=== PATIENT | male | born 1965 | race African-American/Black ===

== ENCOUNTER 2017-08-16 18:10 | Emergency (ER) | payer SELFPAY ==
[2017-08-16] MEDS ORDERED: Acetaminophen 500 MG TAB ONE (18:32)
== END 2017-08-16 18:42 | disposition home or self-care (01) ==
LOC: NAV ERS 18:10
DX: S09.21XA Traumatic rupture of right ear drum, initial encounter (principal); I10 Essential (primary) hypertension; H60.91 Unspecified otitis externa, right ear; F32.9 Major depressive disorder, single episode, unspecified; F17.210 Nicotine dependence, cigarettes, uncomplicated; X58.XXXA Exposure to other specified factors, initial encounter
CPT/HCPCS: 99282

== ENCOUNTER 2018-08-17 10:07 | Emergency (ER) | payer SELFPAY | END 2018-08-17 10:40 | disposition home or self-care (01) | LOC: NAV ERS 10:07 | DX: R60.0 Localized edema (principal); E11.9 Type 2 diabetes mellitus without complications; I10 Essential (primary) hypertension; F17.210 Nicotine dependence, cigarettes, uncomplicated; Z79.899 Other long term (current) drug therapy; Z79.84 Long term (current) use of oral hypoglycemic drugs | CPT/HCPCS: 99406 ==

== ENCOUNTER 2019-01-27 07:31 | Emergency (ER) | payer SELFPAY ==
[2019-01-27] MEDS ORDERED: Acetaminophen 325 MG TAB ONE (07:54)
[2019-01-27] MEDS ORDERED: Pantoprazole 40 MG VIAL ONE (07:54)
[2019-01-27 08:24] LABS: #Basophils 0.1 thou/uL (0.0-0.2); #Eosinphils 0.1 thou/uL (0.0-0.7); #Lymphocytes 1.8 thou/uL (1.20-3.40); #Monocytes 0.7 thou/uL (0.11-0.59); #Neutrophils 4.7 thou/uL (1.40-6.50); %Basophils 1.6 % (0.0-1.0); %Eosinophils 1.3 % (0.0-10.0); %Lymphocytes 24.7 % (21.0-51.0); %Monocytes 9.4 % (0.0-10.0)
[2019-01-27 08:25] LABS: Hemoglobin 14.5 g/dL (14.0-18.0); Mean Corpuscular HGB CONC 33.2 g/dL (32.0-36.0); Mean Corpuscular Volume 99.5 fL (78.0-98.0); Mean Platelet Volume 13.1 fL (7.4-10.4); Platelet Count 176 thou/uL (130-400); RBC Distribution Width 12.7 % (11.5-14.5); Red Blood Cell (RBC) Count 4.38 mill/uL (4.70-6.10); White Blood Cell (WBC) Count 7.4 thou/uL (4.8-10.8)
[2019-01-27 08:36] LABS: ALT (SGPT) 25 U/L (8-55); AST (SGOT) 20 U/L (5-34); Albumin 4.2 g/dL (3.5-5.0); Alkaline Phosphatase 73 U/L (40-150); Anion Gap 16 mmol/L (10-20); BUN (Urea Nitrogen) 10 mg/dL (8.4-25.7); Bilirubin, Total 1.2 mg/dL (0.2-1.2); Calc. Creatinine Clearance 0 mL/min (70-130); Calcium 9.8 mg/dL (7.8-10.44); Carbon Dioxide 25 mmol/L (22-29); Chloride 101 mmol/L (98-107); Estimated GFR-MDRD 63; Globulin 2.8 g/dL (2.4-3.5); Glucose 125 mg/dL (70-105); Potassium 4.2 mmol/L (3.5-5.1); Sodium 138 mmol/L (136-145)
[2019-01-27] MEDS ORDERED: Sodium Chloride 0.9% 500 ML ONE (08:39)
--- NOTE | 2019-01-27 09:03 | CT ---
CT OF THE BRAIN WITHOUT CONTRAST: Date: 01/27/19 INDICATION: Migraine headaches. COMPARISON: None. FINDINGS: There is mild mucosal thickening of the ethmoid air cells. There is an air fluid level within the lef t maxillary sinus. Mastoid air cells are clear. No acute infarct, hemorrhage, or hydrocephalus is pre sent. Septum pellucidum and third ventricle are midline. IMPRESSION: 1. Air fluid level left maxillary sinus. Recommend correlation for acute sinusitis. 2. No acute intracranial abnormality. POS: [facility]
--- NOTE | 2019-01-27 09:04 | RAD ---
PA AND LATERAL CHEST: HISTORY: History of acid reflux and chest pain. FINDINGS: The lungs are clear. Heart size is normal. There is spondylosis of the thoracic spine. IMPRESSION: No acute osseous abnormality. No appreciable change from the comparison, dated 07/19/2018. POS: [facility]
--- NOTE | 2019-01-27 09:07 | RAD ---
LEFT ANKLE 3 VIEWS: Date: 01/27/19 HISTORY: Left foot and ankle pain. COMPARISON: None. FINDINGS: No evidence for acute fracture or dislocation. Mild degenerative changes. IMPRESSION: Degenerative change without fracture or dislocation. POS: [facility]
[2019-01-27] MEDS ORDERED: Sodium Chloride 0.9% 1,000 ML ONE (09:16)
[2019-01-27] MEDS ORDERED: Morphine 4 MG/ML VIAL ONE (09:16)
[2019-01-27] MEDS ORDERED: Ondansetron PF 4 MG/2 ML Vial ONE (09:27)
[2019-01-27 10:22] LABS: Bilirubin Negative (Negative); Blood, Urine Negative (Negative); Clarity Clear (Clear); Glucose, Urine (Dipstick) Negative (Negative); Leukocyte Negative (Negative); Nitrite Negative (Negative); Protein, Urine (Dipstick) Negative (Neg-Trace); Urobilinogen 0.2 mg/dL (0.2-1.0)
[2019-01-27 10:23] LABS: Specific Gravity, Urine 1.004 (1.002-1.036)
[2019-01-27 10:36] LABS: Amphetamine Not Detected (NotDetected); Barbiturates Screen Not Detected (NotDetected); Benzodiazepine Screen Not Detected (NotDetected); Cocaine Metabolite Screen Detected (NotDetected); Medtox Control Line Valid? VALID (VALID); Methadone Not Detected (NotDetected); Methamphetamine Not Detected (NotDetected); Opiate Screen Detected (NotDetected); Oxycodone Screen Not Detected (NotDetected); Phencyclidine (PCP) Not Detected (NotDetected); THC/Cannabinoid Screen Not Detected (NotDetected); Tricyclic Screen Not Detected (NotDetected)
== END 2019-01-27 10:30 | disposition short-term general hospital (02) ==
LOC: NAV ERS 07:31
DX: S93.402A Sprain of unspecified ligament of left ankle, initial encounter (principal); R07.2 Precordial pain; J32.0 Chronic maxillary sinusitis; I16.0 Hypertensive urgency; E11.9 Type 2 diabetes mellitus without complications; I10 Essential (primary) hypertension; F17.210 Nicotine dependence, cigarettes, uncomplicated; F32.9 Major depressive disorder, single episode, unspecified; Z79.899 Other long term (current) drug therapy; Z79.84 Long term (current) use of oral hypoglycemic drugs; X58.XXXA Exposure to other specified factors, initial encounter
CPT/HCPCS: 70450; 71046; 80053; 80306; 81003; 84484; 85025; 93005; 94760; 96361; 96374; 96375; C9113; J2270; J2405; J7050

== ENCOUNTER 2019-11-23 08:11 | Emergency (ER) | payer SELFPAY | END 2019-11-23 09:00 | disposition home or self-care (01) | LOC: NAV ERS 08:11 | DX: I10 Essential (primary) hypertension (principal); E11.9 Type 2 diabetes mellitus without complications; Z79.899 Other long term (current) drug therapy | CPT/HCPCS: 99283 ==

== ENCOUNTER 2019-11-28 07:20 | Emergency (ER) | payer SELFPAY ==
--- NOTE | 2019-11-28 08:15 | RAD ---
2 view chest: CLINICAL HISTORY: Cough COMPARISON: 01/27/2019 FINDINGS: There is no focal consolidation, effusion, or pneumothorax. Cardiac silhouette is normal in size. No acute osseous abnormality. IMPRESSION: No focal consolidation.
[2019-11-28] MEDS ORDERED: Oseltamivir 75 MG CAP ONE (08:25)
[2019-11-28] MEDS ORDERED: Ondansetron ODT 4 MG TAB ONE (08:25)
== END 2019-11-28 08:33 | disposition home or self-care (01) ==
LOC: NAV ERS 07:20
DX: B34.9 Viral infection, unspecified (principal); R11.2 Nausea with vomiting, unspecified; E11.9 Type 2 diabetes mellitus without complications; I10 Essential (primary) hypertension; F17.210 Nicotine dependence, cigarettes, uncomplicated; Z79.84 Long term (current) use of oral hypoglycemic drugs; Z79.899 Other long term (current) drug therapy
CPT/HCPCS: 71046; 87804; Q0162

== ENCOUNTER 2019-12-23 09:13 | Emergency (ER) | payer SELFPAY ==
[2019-12-23] MEDS ORDERED: Naproxen 500 MG TAB ONE (10:00)
[2019-12-23 10:23] LABS: Hemoglobin 14.5 g/dL (14.0-18.0); Mean Corpuscular Hemoglobin 32.9 pg (27.0-31.0); Mean Corpuscular Volume 99.6 fL (78.0-98.0); Mean Platelet Volume 11.1 fL (7.4-10.4); Platelet Count 140 thou/uL (130-400); RBC Distribution Width 12.5 % (11.5-14.5); Red Blood Cell (RBC) Count 4.41 mill/uL (4.70-6.10); White Blood Cell (WBC) Count 4.2 thou/uL (4.8-10.8)
[2019-12-23 10:25] LABS: ALT (SGPT) 24 U/L (8-55); AST (SGOT) 19 U/L (5-34); Albumin 3.7 g/dL (3.5-5.0); Alkaline Phosphatase 57 U/L (40-110); Anion Gap 14 mmol/L (10-20); BUN (Urea Nitrogen) 18 mg/dL (8.4-25.7); Bilirubin, Total 0.7 mg/dL (0.2-1.2); CK (CPK) 186 U/L (30-200); Calc. Creatinine Clearance 0 mL/min (70-130); Carbon Dioxide 25 mmol/L (22-29); Chloride 103 mmol/L (98-107); Estimated GFR-MDRD 75; Globulin 2.5 g/dL (2.4-3.5); Glucose 114 mg/dL (70-105); Protein, Total 6.2 g/dL (6.0-8.3); Sodium 138 mmol/L (136-145)
--- NOTE | 2019-12-23 10:30 | RAD ---
EXAM: 2 views of the right hip HISTORY: Right hip pain COMPARISON: 07/05/2014 FINDINGS: 2 views of the right hip shows no evidence of acute fracture or dislocation. Moderate degen erative changes are seen. No soft tissue swelling is present. IMPRESSION: Moderate right hip osteoarthritis without acute osseous abnormality.
[2019-12-23 10:44] LABS: Eosinophils 4 % (0-10); Lymphocytes 35 % (21-51); MDiff Complete? YES; Monocytes 4 % (0-10); Neutrophil 57 % (42-75); Platelet Morphology Comment Appears Adequate; RBC Morphology Normal
--- NOTE | 2019-12-23 10:46 | CT ---
CT LUMBAR SPINE: Axial tomograms were obtained with multiplanar reconstructions. INDICATION: Lumbar pain. FINDINGS: The lumbar vertebrae maintain normal height and alignment. Disk spaces are preserved. Mild to moder ate degenerative changes are noted with anterior and lateral osteophytes from the lumbar vertebrae. At L1-2, no significant disk bulge. No central canal or foraminal stenosis. At L2-3, minimal disk bulge. Mild facet hypertrophy. No significant central canal or foraminal sten osis. At L3-4, mild disk bulge flattens the thecal sac. Facet and ligamentous hypertrophy is more pronounc ed. These changes result in mild central canal stenosis. At L4-5, mild diffuse disk bulge. Facet and ligamentous hypertrophy is more pronounced. These morales es result in moderately severe central canal stenosis. Bilateral foraminal stenosis is present due t o diffuse disk bulge and facet hypertrophy. At L5-S1, mild diffuse disk bulge. Cognitively smaller thecal sac. No significant central canal carrie nosis, although there is moderately severe facet hypertrophy. Bilateral foraminal encroachment due t o broad-based disk bulge and facet hypertrophy. IMPRESSION: Moderate to severe central canal stenosis at L4-5. Findings at the other disk levels are described a derrell. POS: [facility]
== END 2019-12-23 11:12 | disposition home or self-care (01) ==
LOC: NAV ERS 09:13
DX: M16.11 Unilateral primary osteoarthritis, right hip (principal); M51.36 Other intervertebral disc degeneration, lumbar region; E11.9 Type 2 diabetes mellitus without complications; I10 Essential (primary) hypertension; F17.210 Nicotine dependence, cigarettes, uncomplicated; Z79.84 Long term (current) use of oral hypoglycemic drugs; Z79.899 Other long term (current) drug therapy
CPT/HCPCS: 36415; 72131; 80053; 82550; 85025

== ENCOUNTER 2020-01-13 06:39 | Emergency (ER) | payer SELFPAY ==
[2020-01-13] MEDS ORDERED: Metoclopramide HCl 10 MG/2 ML VIAL ONE (07:15)
[2020-01-13] MEDS ORDERED: diphenhydrAMINE 50 MG/ML VIAL ONE (07:15)
[2020-01-13] MEDS ORDERED: Ketorolac Tromethamine 30 MG/ML VIAL ONE (07:15)
== END 2020-01-13 08:10 | disposition home or self-care (01) ==
LOC: NAV ERS 06:39
DX: R51 Headache (principal); M25.511 Pain in right shoulder; E11.9 Type 2 diabetes mellitus without complications; I10 Essential (primary) hypertension; F17.210 Nicotine dependence, cigarettes, uncomplicated; Z79.84 Long term (current) use of oral hypoglycemic drugs; Z79.899 Other long term (current) drug therapy
CPT/HCPCS: 96372; 99283; J1200; J1885; J2765

== ENCOUNTER 2020-10-08 20:35 | Emergency (ER) | payer BC, SELFPAY ==
[2020-10-08] MEDS ORDERED: Cyclobenzaprine 10 MG TAB ONE (21:13)
[2020-10-08] MEDS ORDERED: Ketorolac Tromethamine 60 MG/2 ML VIAL ONE (21:13)
== END 2020-10-08 21:36 | disposition home or self-care (01) ==
LOC: NAV ERS 20:35
DX: S39.012A Strain of muscle, fascia and tendon of lower back, initial encounter (principal); G44.209 Tension-type headache, unspecified, not intractable; E11.9 Type 2 diabetes mellitus without complications; I10 Essential (primary) hypertension; F17.210 Nicotine dependence, cigarettes, uncomplicated; Z79.4 Long term (current) use of insulin; Z79.899 Other long term (current) drug therapy; X50.0XXA Overexertion from strenuous movement or load, initial encounter
CPT/HCPCS: 96372; 99406; J1885

== ENCOUNTER 2021-06-22 12:34 | Emergency (ER) | payer SELFPAY ==
[2021-06-22] MEDS ORDERED: Orphenadrine Citrate 60 MG/2 ML VIAL ONE (13:56)
== END 2021-06-22 14:12 | disposition home or self-care (01) ==
LOC: NAV ERS 12:34
DX: J06.9 Acute upper respiratory infection, unspecified (principal); M62.830 Muscle spasm of back; G89.29 Other chronic pain; E11.9 Type 2 diabetes mellitus without complications; I10 Essential (primary) hypertension; F17.210 Nicotine dependence, cigarettes, uncomplicated; Z79.4 Long term (current) use of insulin; Z79.899 Other long term (current) drug therapy
CPT/HCPCS: 96372; 99283; J2360

== ENCOUNTER 2022-02-23 03:23 | Emergency (ER) | payer BC, OTHER ==
[2022-02-23] MEDS ORDERED: Morphine 4 MG/ML VIAL ONE (04:34)
[2022-02-23 16:09] LABS: SARS-CoV-2 PCR by NAA Not Detected (NotDetected)
== END 2022-02-23 05:07 | disposition home or self-care (01) ==
LOC: NAV ERS 03:23
DX: R05.9 Cough, unspecified (principal); R50.9 Fever, unspecified; E11.9 Type 2 diabetes mellitus without complications; I10 Essential (primary) hypertension; F17.210 Nicotine dependence, cigarettes, uncomplicated; Z20.822 Contact with and (suspected) exposure to COVID-19; Z79.4 Long term (current) use of insulin; Z79.84 Long term (current) use of oral hypoglycemic drugs; Z79.899 Other long term (current) drug therapy
CPT/HCPCS: 71046; 87804; 94640; 96372; J2270; J7620; U0003; U0005

== ENCOUNTER 2022-05-06 23:38 | Emergency (ER) | payer SELFPAY ==
[2022-05-07 00:04] LABS: Bilirubin Negative (Negative); Blood, Urine Negative (Negative); Clarity Clear (Clear); Glucose, Urine (Dipstick) Negative (Negative); Ketone, Urine Negative (Negative); Leukocyte Negative (Negative); Nitrite Negative (Negative); Protein, Urine (Dipstick) Negative (Neg-Trace); Urobilinogen 0.2 mg/dL (Less than 2)
[2022-05-07] MEDS ORDERED: Ketorolac Tromethamine 60 MG/2 ML VIAL ONE (00:04)
[2022-05-07] MEDS ORDERED: Ondansetron ODT 4 MG TAB ONE (00:04)
[2022-05-07] MEDS ORDERED: traMADol HCl 50 MG TAB ONE (00:04)
== END 2022-05-07 00:27 | disposition home or self-care (01) ==
LOC: NAV ERS 23:38
DX: M10.9 Gout, unspecified (principal); A08.4 Viral intestinal infection, unspecified; E11.9 Type 2 diabetes mellitus without complications; I10 Essential (primary) hypertension; R11.2 Nausea with vomiting, unspecified; G47.30 Sleep apnea, unspecified; F17.210 Nicotine dependence, cigarettes, uncomplicated; Z79.899 Other long term (current) drug therapy; Z79.4 Long term (current) use of insulin; Z79.82 Long term (current) use of aspirin
CPT/HCPCS: 81003; 96372; 99284; J1885; Q0162

== ENCOUNTER 2022-06-11 08:47 | Emergency (ER) | payer SELFPAY ==
[2022-06-11] MEDS ORDERED: Ketorolac Tromethamine 30 MG/ML VIAL ONE (09:29)
== END 2022-06-11 09:56 | disposition home or self-care (01) ==
LOC: NAV ERS 08:47
DX: U07.1 COVID-19 (principal); E11.9 Type 2 diabetes mellitus without complications; M54.50 Low back pain, unspecified; M10.9 Gout, unspecified; G47.30 Sleep apnea, unspecified; F17.210 Nicotine dependence, cigarettes, uncomplicated; Z79.82 Long term (current) use of aspirin; Z79.4 Long term (current) use of insulin; Z79.899 Other long term (current) drug therapy
CPT/HCPCS: 71045; 96372; J1885

== ENCOUNTER 2022-06-22 09:03 | Emergency (ER) | payer SELFPAY | END 2022-06-22 09:33 | disposition home or self-care (01) | LOC: NAV ERS 09:03 | DX: J04.0 Acute laryngitis (principal); E11.9 Type 2 diabetes mellitus without complications; I10 Essential (primary) hypertension; F17.210 Nicotine dependence, cigarettes, uncomplicated; Z79.899 Other long term (current) drug therapy; Z79.4 Long term (current) use of insulin; Z79.84 Long term (current) use of oral hypoglycemic drugs | CPT/HCPCS: 99282 ==

== ENCOUNTER 2022-07-10 04:42 | Emergency (ER) | payer SELFPAY ==
[2022-07-10 05:30] LABS: Bilirubin Negative (Negative); Blood, Urine Negative (Negative); Clarity Clear (Clear); Glucose, Urine (Dipstick) Negative (Negative); Ketone, Urine Negative (Negative); Leukocyte Negative (Negative); Nitrite Negative (Negative); Protein, Urine (Dipstick) Negative (Neg-Trace); Specific Gravity, Urine 1.025 (1.005-1.030)
[2022-07-10] MEDS ORDERED: Aspirin Chewable 81 MG TAB ONE (05:36)
[2022-07-10 05:46] LABS: Mean Platelet Volume 12.2 fL (7.4-10.4)
[2022-07-10 05:49] LABS: ALT (SGPT) 25 U/L (8-55); AST (SGOT) 19 U/L (5-34); Albumin 3.4 g/dL (3.5-5.0); Alkaline Phosphatase 49 U/L (40-110); Anion Gap 13 mmol/L (10-20); BUN (Urea Nitrogen) 16 mg/dL (8.4-25.7); Bilirubin, Total 0.8 mg/dL (0.2-1.2); Calc. Creatinine Clearance 0 mL/min (70-130); Calcium 8.5 mg/dL (7.8-10.44); Carbon Dioxide 22 mmol/L (22-29); Chloride 105 mmol/L (98-107); Estimated GFR 75; Globulin 2.3 g/dL (2.4-3.5); Glucose 156 mg/dL (70-105); Hemoglobin 10.6 g/dL (14.0-18.0); Lipase 23 U/L (8-78); Mean Corpuscular HGB CONC 27.7 g/dL (32.0-36.0); Mean Corpuscular Hemoglobin 25.1 pg (27.0-31.0); Mean Corpuscular Volume 90.6 fL (78.0-98.0); Platelet Count 209 thou/uL (130-400); Potassium 3.9 mmol/L (3.5-5.1); Protein, Total 5.7 g/dL (6.0-8.3); Red Blood Cell (RBC) Count 4.21 mill/uL (4.70-6.10); Sodium 136 mmol/L (136-145); White Blood Cell (WBC) Count 4.5 thou/uL (4.8-10.8)
[2022-07-10 05:50] LABS: #Basophils 0.1 thou/uL (0.0-0.2); #Lymphocytes 0.6 thou/uL (1.20-3.40); #Monocytes 0.5 thou/uL (0.11-0.59); #Neutrophils 3.4 thou/uL (1.40-6.50); %Basophils 1.4 % (0.0-1.0); %Eosinophils 0.6 % (0.0-10.0); %Lymphocytes 12.7 % (21.0-51.0); %Monocytes 10.1 % (0.0-10.0); %Neutrophils 75.2 % (42.0-75.0)
== END 2022-07-10 08:41 | disposition left against medical advice (07) ==
LOC: NAV ERS 04:42
DX: R06.02 Shortness of breath (principal); M79.18 Myalgia, other site; D64.9 Anemia, unspecified; R30.0 Dysuria; I45.10 Unspecified right bundle-branch block; I10 Essential (primary) hypertension; E11.9 Type 2 diabetes mellitus without complications; M10.9 Gout, unspecified; G47.30 Sleep apnea, unspecified; F17.210 Nicotine dependence, cigarettes, uncomplicated; Z79.82 Long term (current) use of aspirin; Z79.4 Long term (current) use of insulin; Z79.899 Other long term (current) drug therapy
CPT/HCPCS: 36415; 71046; 80053; 81003; 83690; 83880; 84484; 85025; 85379; 93005

== ENCOUNTER 2022-08-21 10:02 | Emergency (ER) | payer OTHER ==
[2022-08-21] MEDS ORDERED: Sodium Chloride 0.9% 1,000 ML ONE (10:20)
== END 2022-08-21 10:45 | disposition home or self-care (01) ==
LOC: NAV ERS 10:02
DX: J06.9 Acute upper respiratory infection, unspecified (principal); E11.9 Type 2 diabetes mellitus without complications; I10 Essential (primary) hypertension; F17.210 Nicotine dependence, cigarettes, uncomplicated; Z79.4 Long term (current) use of insulin; Z79.899 Other long term (current) drug therapy
CPT/HCPCS: 36416; 99284; J7050

== ENCOUNTER 2022-10-12 05:19 | Emergency (ER) | payer OTHER ==
[2022-10-12 06:02] LABS: Bilirubin Negative (Negative); Blood, Urine Negative (Negative); Clarity Clear (Clear); Glucose, Urine (Dipstick) Negative (Negative); Ketone, Urine Negative (Negative); Leukocyte Negative (Negative); Nitrite Negative (Negative); Protein, Urine (Dipstick) Negative (Neg-Trace); Urobilinogen 0.2 mg/dL (Less than 2)
[2022-10-12] MEDS ORDERED: Cyclobenzaprine 10 MG TAB ONE (06:14)
[2022-10-12] MEDS ORDERED: Ketorolac Tromethamine 60 MG/2 ML VIAL ONE (06:14)
== END 2022-10-12 06:40 | disposition home or self-care (01) ==
LOC: NAV ERS 05:19
DX: S39.012A Strain of muscle, fascia and tendon of lower back, initial encounter (principal); E11.9 Type 2 diabetes mellitus without complications; I10 Essential (primary) hypertension; F17.210 Nicotine dependence, cigarettes, uncomplicated; Z79.84 Long term (current) use of oral hypoglycemic drugs; Z79.899 Other long term (current) drug therapy; Z79.4 Long term (current) use of insulin
CPT/HCPCS: 81003; 96372; 99283; J1885

== ENCOUNTER 2022-10-21 04:45 | Emergency (ER) | payer OTHER ==
[2022-10-21] MEDS ORDERED: Ketorolac Tromethamine 30 MG/ML VIAL ONE (05:41)
== END 2022-10-21 06:05 | disposition home or self-care (01) ==
LOC: NAV ERS 04:45
DX: M77.52 Other enthesopathy of left foot and ankle (principal); E11.9 Type 2 diabetes mellitus without complications; I10 Essential (primary) hypertension; F17.210 Nicotine dependence, cigarettes, uncomplicated; Z79.899 Other long term (current) drug therapy; Z79.82 Long term (current) use of aspirin; Z79.84 Long term (current) use of oral hypoglycemic drugs
CPT/HCPCS: 96372; J1885

== ENCOUNTER 2022-12-09 04:38 | Emergency (ER) | payer OTHER ==
[2022-12-09] MEDS ORDERED: Ketorolac Tromethamine 60 MG/2 ML VIAL ONE (05:39)
== END 2022-12-09 06:07 | disposition home or self-care (01) ==
LOC: NAV ERS 04:38
DX: S39.012A Strain of muscle, fascia and tendon of lower back, initial encounter (principal); M21.42 Flat foot [pes planus] (acquired), left foot; M21.41 Flat foot [pes planus] (acquired), right foot; E11.9 Type 2 diabetes mellitus without complications; I10 Essential (primary) hypertension; F17.210 Nicotine dependence, cigarettes, uncomplicated; Z79.82 Long term (current) use of aspirin; Z79.84 Long term (current) use of oral hypoglycemic drugs; Z79.4 Long term (current) use of insulin; Z79.899 Other long term (current) drug therapy; X50.1XXA Overexertion from prolonged static or awkward postures, initial encounter
CPT/HCPCS: 96372; 99283; J1885

== ENCOUNTER 2023-02-01 16:59 | Emergency (ER) | payer OTHER, SELFPAY ==
[2023-02-01] MEDS ORDERED: Indomethacin 25 mg Capsule ONE (17:35)
== END 2023-02-01 17:41 | disposition home or self-care (01) ==
LOC: NAV ERS 16:59
DX: M10.9 Gout, unspecified (principal); E11.9 Type 2 diabetes mellitus without complications; I10 Essential (primary) hypertension; F17.210 Nicotine dependence, cigarettes, uncomplicated; Z79.4 Long term (current) use of insulin; Z79.84 Long term (current) use of oral hypoglycemic drugs; Z79.82 Long term (current) use of aspirin; Z79.899 Other long term (current) drug therapy
CPT/HCPCS: 99283

== ENCOUNTER 2023-02-25 04:35 | Emergency (ER) | payer OTHER ==
[2023-02-25] MEDS ORDERED: Indomethacin 25 mg Capsule ONE (04:51)
== END 2023-02-25 04:59 | disposition home or self-care (01) ==
LOC: NAV ERS 04:35
DX: M10.9 Gout, unspecified (principal); E11.9 Type 2 diabetes mellitus without complications; I10 Essential (primary) hypertension; F17.210 Nicotine dependence, cigarettes, uncomplicated; Z79.4 Long term (current) use of insulin
CPT/HCPCS: 99283

== ENCOUNTER 2023-03-18 16:35 | Emergency (ER) | payer OTHER ==
[2023-03-18] MEDS ORDERED: Ketorolac Tromethamine 30 MG/ML VIAL ONE (17:23)
== END 2023-03-18 17:25 | disposition home or self-care (01) ==
LOC: NAV ERS 16:35
DX: M10.9 Gout, unspecified (principal); E11.9 Type 2 diabetes mellitus without complications; Z79.4 Long term (current) use of insulin; I10 Essential (primary) hypertension; G47.30 Sleep apnea, unspecified; F17.210 Nicotine dependence, cigarettes, uncomplicated; Z79.899 Other long term (current) drug therapy
CPT/HCPCS: 96372; 99283; J1885

== ENCOUNTER 2023-04-07 08:33 | Emergency (ER) | payer OTHER ==
[2023-04-07] MEDS ORDERED: Ketorolac Tromethamine 60 MG/2 ML VIAL ONE (09:16)
== END 2023-04-07 09:40 | disposition home or self-care (01) ==
LOC: NAV ERS 08:33
DX: M10.9 Gout, unspecified (principal); M21.42 Flat foot [pes planus] (acquired), left foot; E11.9 Type 2 diabetes mellitus without complications; Z79.4 Long term (current) use of insulin; I10 Essential (primary) hypertension; E78.00 Pure hypercholesterolemia, unspecified; G47.30 Sleep apnea, unspecified; F17.210 Nicotine dependence, cigarettes, uncomplicated; Z79.899 Other long term (current) drug therapy
CPT/HCPCS: 96372; 99283; J1885

== ENCOUNTER 2023-05-27 02:36 | Emergency (ER) | payer OTHER ==
[2023-05-27] MEDS ORDERED: Ketorolac Tromethamine 30 MG/ML VIAL ONE (03:04)
== END 2023-05-27 03:25 | disposition home or self-care (01) ==
LOC: NAV ERS 02:36
DX: M25.511 Pain in right shoulder (principal); E11.9 Type 2 diabetes mellitus without complications; I10 Essential (primary) hypertension; F17.210 Nicotine dependence, cigarettes, uncomplicated; Z79.4 Long term (current) use of insulin; Z79.899 Other long term (current) drug therapy; Z79.82 Long term (current) use of aspirin; Z79.84 Long term (current) use of oral hypoglycemic drugs
CPT/HCPCS: 96372; 99283; J1885

== ENCOUNTER 2023-08-10 09:13 | Emergency (ER) | payer OTHER, SELFPAY | END 2023-08-10 09:55 | disposition home or self-care (01) | LOC: NAV ERS 09:13 | DX: N47.7 Other inflammatory diseases of prepuce (principal); L30.8 Other specified dermatitis; F17.210 Nicotine dependence, cigarettes, uncomplicated; I10 Essential (primary) hypertension; E11.9 Type 2 diabetes mellitus without complications; Z79.4 Long term (current) use of insulin; Z79.84 Long term (current) use of oral hypoglycemic drugs | CPT/HCPCS: 99284 ==

== ENCOUNTER 2023-11-09 19:21 | Emergency (ER) | payer OTHER | END 2023-11-09 19:39 | disposition left against medical advice (07) | LOC: NAV ERS 19:21 | DX: Z53.21 Procedure and treatment not carried out due to patient leaving prior to being seen by health care provider (principal) ==

== ENCOUNTER 2024-01-27 21:39 | Emergency (ER) | payer SELFPAY ==
[2024-01-27] MEDS ORDERED: Ketorolac Tromethamine 60 MG/2 ML VIAL ONE (22:11)
== END 2024-01-27 22:30 | disposition home or self-care (01) ==
LOC: NAV ERS 21:39
DX: M25.511 Pain in right shoulder (principal); E11.9 Type 2 diabetes mellitus without complications; I10 Essential (primary) hypertension; F17.210 Nicotine dependence, cigarettes, uncomplicated; X58.XXXA Exposure to other specified factors, initial encounter; Z79.4 Long term (current) use of insulin; Z79.84 Long term (current) use of oral hypoglycemic drugs; Z79.899 Other long term (current) drug therapy
CPT/HCPCS: 96372; 99283; J1885

== ENCOUNTER 2024-02-26 04:54 | Emergency (ER) | payer SELFPAY ==
[2024-02-26] MEDS ORDERED: methylPREDNISolone Sod Succ/PF 125 MG/2 ML VIAL ONE (05:17)
== END 2024-02-26 05:40 | disposition home or self-care (01) ==
LOC: NAV ERS 04:54
DX: R10.9 Unspecified abdominal pain (principal); E11.9 Type 2 diabetes mellitus without complications; I10 Essential (primary) hypertension; F17.210 Nicotine dependence, cigarettes, uncomplicated; Z79.4 Long term (current) use of insulin
CPT/HCPCS: 96372; 99283; J2930

== ENCOUNTER 2024-05-30 05:52 | Emergency (ER) | payer OTHER, SELFPAY ==
[2024-05-30] MEDS ORDERED: methylPREDNISolone Sod Succ/PF 125 MG/2 ML VIAL ONE (06:18)
== END 2024-05-30 06:40 | disposition home or self-care (01) ==
LOC: NAV ERS 05:52
DX: M10.9 Gout, unspecified (principal); I10 Essential (primary) hypertension; E11.9 Type 2 diabetes mellitus without complications; F17.210 Nicotine dependence, cigarettes, uncomplicated; Z79.4 Long term (current) use of insulin; Z79.899 Other long term (current) drug therapy
CPT/HCPCS: 96372; 99283; J2930

== ENCOUNTER 2024-06-04 20:29 | Emergency (ER) | payer SELFPAY | END 2024-06-04 21:00 | disposition left against medical advice (07) | LOC: NAV ERS 20:29 | DX: Z53.21 Procedure and treatment not carried out due to patient leaving prior to being seen by health care provider (principal) ==

== ENCOUNTER 2024-06-05 06:45 | Emergency (ER) | payer SELFPAY ==
[2024-06-05] MEDS ORDERED: Ketorolac Tromethamine 30 MG (1 mL) VIAL ONE (07:28)
[2024-06-05] MEDS ORDERED: Dexamethasone 4 mg/ml Vial IM SCH (07:45)
== END 2024-06-05 08:00 | disposition home or self-care (01) ==
LOC: NAV ERS 06:45
DX: M10.9 Gout, unspecified (principal); M25.572 Pain in left ankle and joints of left foot; M25.571 Pain in right ankle and joints of right foot; F17.210 Nicotine dependence, cigarettes, uncomplicated; E11.9 Type 2 diabetes mellitus without complications; I10 Essential (primary) hypertension; Z79.4 Long term (current) use of insulin; Z79.84 Long term (current) use of oral hypoglycemic drugs; Z79.899 Other long term (current) drug therapy; Z79.82 Long term (current) use of aspirin
CPT/HCPCS: 96372; 99283; J1100; J1885

== ENCOUNTER 2024-06-10 16:36 | Emergency (ER) | payer SELFPAY ==
[2024-06-10] MEDS ORDERED: Mag-Al Plus 1200/1200/120 MG (30 mL) UDCUP ONE (17:07)
[2024-06-10] MEDS ORDERED: Lidocaine 2% Viscous 100 ML BOTTLE ONE (17:07)
[2024-06-10] MEDS ORDERED: Pantoprazole DR 40 MG TAB ONE (17:34)
[2024-06-10 17:46] LABS: ALT (SGPT) 15 U/L (8-55); AST (SGOT) 10 U/L (5-34); Albumin 2.7 g/dL (3.5-5.0); Alkaline Phosphatase 61 U/L (40-110); Anion Gap 17 mmol/L (10-20); BUN (Urea Nitrogen) 25 mg/dL (8.4-25.7); Bilirubin, Total 0.6 mg/dL (0.2-1.2); Calc. Creatinine Clearance 0 mL/min (70-130); Carbon Dioxide 23 mmol/L (22-29); Chloride 98 mmol/L (98-107); Estimated GFR 56; Globulin 3.5 g/dL (2.4-3.5); Glucose 309 mg/dL (70-105); Lipase 17 U/L (8-78); Potassium 4.4 mmol/L (3.5-5.1); Protein, Total 6.2 g/dL (6.0-8.3); Sodium 134 mmol/L (136-145)
[2024-06-10 17:52] LABS: Band 5 % (5-11); Hematocrit 47.7 % (42.0-52.0); Hemoglobin 15.7 g/dL (14.0-18.0); Lymphocytes 10 % (21-51); MDiff Complete? YES; Mean Corpuscular HGB CONC 32.8 g/dL (32.0-36.0); Mean Corpuscular Volume 97.5 fl (78.0-98.0); Mean Platelet Volume 12.7 fL (7.4-10.4); Monocytes 12 % (0-10); Neutrophil 72 % (42-75); Platelet Adequacy Comment Appears Adequate; Platelet Count 179 10x3/uL (130-400); RBC Distribution Width 12.3 % (11.5-14.5); Red Blood Cell (RBC) Count 4.89 mill/uL (4.70-6.10); White Blood Cell (WBC) Count 11.1 10x3/uL (4.8-10.8)
== END 2024-06-10 18:35 | disposition home or self-care (01) ==
LOC: NAV ERS 16:36
DX: R10.13 Epigastric pain (principal); M10.9 Gout, unspecified; I10 Essential (primary) hypertension; E11.9 Type 2 diabetes mellitus without complications; F17.210 Nicotine dependence, cigarettes, uncomplicated; Z79.4 Long term (current) use of insulin; Z79.899 Other long term (current) drug therapy; Z79.84 Long term (current) use of oral hypoglycemic drugs
CPT/HCPCS: 36415; 80053; 83690; 85025; 93005

== ENCOUNTER 2024-06-16 02:49 | Emergency (ER) | payer BC ==
[2024-06-18 06:30] LABS: %Lymphocytes 12.9 % (21.0-51.0); %Monocytes 10.7 % (0.0-10.0); %Neutrophils 74.2 % (42.0-75.0); Hemoglobin 13.5 g/dL (14.0-18.0); Mean Corpuscular HGB CONC 33.9 g/dL (32.0-36.0); Mean Corpuscular Hemoglobin 32.7 pg (27.0-31.0); Mean Corpuscular Volume 96.6 fl (78.0-98.0); Mean Platelet Volume 10.7 fL (7.4-10.4); Platelet Count 236 10x3/uL (130-400); Red Blood Cell (RBC) Count 4.14 mill/uL (4.70-6.10); White Blood Cell (WBC) Count 10.1 10x3/uL (4.8-10.8)
[2024-06-18 06:31] LABS: %Basophils 1.2 % (0.0-1.0)
[2024-06-18 06:34] LABS: Anion Gap 13 mmol/L (10-20); BUN (Urea Nitrogen) 12 mg/dL (8.4-25.7); Bilirubin, Total 0.2 mg/dL (0.2-1.2); Calc. Creatinine Clearance 0 mL/min (70-130); Calcium 8.5 mg/dL (7.6-10.4); Carbon Dioxide 23 mmol/L (22-29); Chloride 100 mmol/L (98-107); Estimated GFR 88; Glucose 352 mg/dL (70-105); Potassium 3.9 mmol/L (3.5-5.1); Protein, Total 6.5 g/dL (6.0-8.3); Sodium 132 mmol/L (136-145)
[2024-06-18 06:35] LABS: ALT (SGPT) 21 U/L (8-55); AST (SGOT) 13 U/L (5-34); Albumin 2.7 g/dL (3.5-5.0); Alkaline Phosphatase 70 U/L (40-110); Globulin 3.8 g/dL (2.4-3.5); Uric Acid 2.7 mg/dL (3.5-7.2)
[2024-06-18 06:37] LABS: Base Excess-Venous 1.1 mmol/L (-2.0 to 3.0); Bicarbonate (HCO3v) 26.6 mmol/L (22.0-28.0); CO2 Tension (PvCO2) 44.6 mmHg (42.0-51.0); Hemoglobin - Calc 15.1 g/dL (14.0-18.0); vO2 Saturation-calc 81.4 % (60.0-85.0)
[2024-06-18 06:38] LABS: Calcium, Ionized 1.13 mmol/L (1.15-1.33); Chloride 100 mmol/L (98-107); Sodium 135 mmol/L (138-145)
== END 2024-06-16 20:30 | disposition short-term general hospital (02) ==
LOC: NAV ERS 05:29
DX: E11.51 Type 2 diabetes mellitus with diabetic peripheral angiopathy without gangrene (principal); I99.8 Other disorder of circulatory system; I10 Essential (primary) hypertension
CPT/HCPCS: 80053; 82010; 82330; 82435; 82803; 84132; 84295; 84550; 85014; 85025; 85379; 99284

== ENCOUNTER 2024-09-02 21:04 | Emergency (ER) | payer BC | END 2024-09-02 21:45 | disposition home or self-care (01) | LOC: NAV ERS 21:04 | DX: M79.605 Pain in left leg (principal); I10 Essential (primary) hypertension; E78.5 Hyperlipidemia, unspecified; E11.9 Type 2 diabetes mellitus without complications; Z79.4 Long term (current) use of insulin; Z79.84 Long term (current) use of oral hypoglycemic drugs; Z79.899 Other long term (current) drug therapy; Z89.512 Acquired absence of left leg below knee | CPT/HCPCS: 99283 ==

== ENCOUNTER 2024-09-10 20:24 | Emergency (ER) | payer BC | END 2024-09-10 20:54 | disposition home or self-care (01) | LOC: NAV ERS 20:24 | DX: T87.89 Other complications of amputation stump (principal); E11.9 Type 2 diabetes mellitus without complications; I10 Essential (primary) hypertension; Z79.84 Long term (current) use of oral hypoglycemic drugs; Z79.4 Long term (current) use of insulin; W05.0XXA Fall from non-moving wheelchair, initial encounter | CPT/HCPCS: 99283 ==

== ENCOUNTER 2024-09-14 19:58 | Emergency (ER) | payer BC ==
[2024-09-14 20:26] LABS: %Neutrophils 70.6 % (42.0-75.0); Hematocrit 46.4 % (42.0-52.0); Hemoglobin 15.2 g/dL (14.0-18.0); Manual Diff?? NO; Mean Corpuscular HGB CONC 32.8 g/dL (32.0-36.0); Mean Corpuscular Hemoglobin 30.2 pg (27.0-31.0); Mean Corpuscular Volume 92.1 fl (78.0-98.0); Mean Platelet Volume 13.8 fL (7.4-10.4); Platelet Count 214 10x3/uL (130-400); RBC Distribution Width 13.9 % (11.5-14.5); Red Blood Cell (RBC) Count 5.04 mill/uL (4.70-6.10); White Blood Cell (WBC) Count 7.8 10x3/uL (4.8-10.8)
[2024-09-14 20:27] LABS: #Basophils 0.1 thou/uL (0.0-0.2); #Eosinophils 0.1 thou/uL (0.0-0.7); #Lymphocytes 1.5 thou/uL (1.20-3.40); #Monocytes 0.7 thou/uL (0.11-0.59); #Neutrophils 5.5 thou/uL (1.40-6.50); %Basophils 1.2 % (0.0-1.0); %Eosinophils 1.2 % (0.0-10.0); %Lymphocytes 19.5 % (21.0-51.0); %Monocytes 7.5 % (0.0-10.0)
[2024-09-14 20:30] LABS: Glucose 541 mg/dL (70-105)
[2024-09-14 20:33] LABS: ALT (SGPT) 46 U/L (8-55); AST (SGOT) 17 U/L (5-34); Albumin 3.3 g/dL (3.5-5.0); Alkaline Phosphatase 114 U/L (40-110); Anion Gap 15 mmol/L (10-20); BUN (Urea Nitrogen) 16 mg/dL (8.4-25.7); Bilirubin, Total 0.3 mg/dL (0.2-1.2); Calc. Creatinine Clearance 0 mL/min (70-130); Carbon Dioxide 22 mmol/L (22-29); Chloride 99 mmol/L (98-107); Estimated GFR 49; Globulin 3.3 g/dL (2.4-3.5); Lipase 41 U/L (8-78); Potassium 4.1 mmol/L (3.5-5.1); Protein, Total 6.6 g/dL (6.0-8.3); Sodium 132 mmol/L (136-145)
[2024-09-14 20:37] LABS: Troponin I 0.011 ng/mL (< 0.028)
[2024-09-14 20:59] LABS: Bilirubin Negative (Negative); Blood, Urine Negative (Negative); Clarity Clear (Clear); Glucose, Urine (Dipstick) >=1000 mg/dL (Negative); Ketone, Urine Negative (Negative); Leukocyte Negative (Negative); Nitrite Negative (Negative); Protein, Urine (Dipstick) Negative (Neg-Trace); Specific Gravity, Urine 1.005 (1.002-1.036); Urobilinogen 0.2 mg/dL (Less than 2); pH, Urine 5.5 (5.0-9.0)
[2024-09-14 21:00] LABS: Urine Culture Reflex No No
[2024-09-14] MEDS ORDERED: Ketorolac Tromethamine 30 MG (1 mL) VIAL ONE (21:09)
== END 2024-09-14 21:17 | disposition home or self-care (01) ==
LOC: NAV ERS 19:58
DX: M75.41 Impingement syndrome of right shoulder (principal); E11.65 Type 2 diabetes mellitus with hyperglycemia; I10 Essential (primary) hypertension; Z79.4 Long term (current) use of insulin; Z79.84 Long term (current) use of oral hypoglycemic drugs
CPT/HCPCS: 36415; 80053; 81001; 82010; 83690; 84484; 85025; 93005; 96374; J1885

== ENCOUNTER 2024-10-06 20:30 | Emergency (ER) | payer BC ==
[2024-10-06 21:15] LABS: Prothrombin Time 13.2 sec (12.0-14.7)
[2024-10-06 21:16] LABS: #Basophils 0.1 thou/uL (0.0-0.2); #Eosinophils 0.1 thou/uL (0.0-0.7); #Lymphocytes 1.3 thou/uL (1.20-3.40); #Monocytes 0.5 thou/uL (0.11-0.59); #Neutrophils 4.3 thou/uL (1.40-6.50); %Basophils 1.4 % (0.0-1.0); %Eosinophils 0.9 % (0.0-10.0); %Lymphocytes 20.8 % (21.0-51.0); %Monocytes 8.3 % (0.0-10.0); %Neutrophils 68.5 % (42.0-75.0); Hematocrit 48.3 % (42.0-52.0); Hemoglobin 15.9 g/dL (14.0-18.0); Mean Corpuscular HGB CONC 32.8 g/dL (32.0-36.0); Mean Corpuscular Hemoglobin 29.8 pg (27.0-31.0); Mean Corpuscular Volume 90.8 fl (78.0-98.0); Mean Platelet Volume 12.7 fL (7.4-10.4); Platelet Count 193 10x3/uL (130-400); RBC Distribution Width 13.8 % (11.5-14.5); Red Blood Cell (RBC) Count 5.33 mill/uL (4.70-6.10); White Blood Cell (WBC) Count 6.3 10x3/uL (4.8-10.8)
== END 2024-10-06 21:38 | disposition home or self-care (01) ==
LOC: NAV ERS 20:30
DX: K92.2 Gastrointestinal hemorrhage, unspecified (principal); K59.00 Constipation, unspecified; I10 Essential (primary) hypertension; E11.9 Type 2 diabetes mellitus without complications
CPT/HCPCS: 36415; 82274; 85025; 85610; 99283

== ENCOUNTER 2024-11-03 19:38 | Emergency (ER) | payer BC, SELFPAY ==
[2024-11-03 20:42] LABS: Anion Gap 11 mmol/L (10-20); BUN (Urea Nitrogen) 14 mg/dL (8.4-25.7); Calc. Creatinine Clearance 0 mL/min (70-130); Carbon Dioxide 25 mmol/L (22-29); Chloride 103 mmol/L (98-107); Estimated GFR 74; Glucose 286 mg/dL (70-105); Potassium 4.1 mmol/L (3.5-5.1); Sodium 135 mmol/L (136-145)
== END 2024-11-03 21:00 | disposition home or self-care (01) ==
LOC: NAV ERS 19:38
DX: E11.65 Type 2 diabetes mellitus with hyperglycemia (principal); R11.0 Nausea; I10 Essential (primary) hypertension; Z79.4 Long term (current) use of insulin
CPT/HCPCS: 36416; 80048; 82010; 96360; 36415-59

== ENCOUNTER 2024-12-23 19:33 | Emergency (ER) | payer BC | END 2024-12-23 19:57 | disposition left against medical advice (07) | LOC: NAV ERS 19:33 | DX: Z53.21 Procedure and treatment not carried out due to patient leaving prior to being seen by health care provider (principal); E11.9 Type 2 diabetes mellitus without complications; I10 Essential (primary) hypertension; Z79.4 Long term (current) use of insulin ==

== ENCOUNTER 2025-01-21 18:21 | Emergency (ER) | payer BC ==
[2025-01-21 18:55] LABS: #Basophils 0.1 thou/uL (0.0-0.2); #Eosinophils 0.1 thou/uL (0.0-0.7); #Lymphocytes 1.5 thou/uL (1.20-3.40); #Monocytes 0.6 thou/uL (0.11-0.59); #Neutrophils 3.7 thou/uL (1.40-6.50); %Basophils 1.7 % (0.0-1.0); %Eosinophils 1.2 % (0.0-10.0); %Lymphocytes 25.3 % (21.0-51.0); %Monocytes 9.7 % (0.0-10.0); %Neutrophils 62.1 % (42.0-75.0); Hematocrit 46.2 % (42.0-52.0); Hemoglobin 14.9 g/dL (14.0-18.0); Mean Corpuscular HGB CONC 32.3 g/dL (32.0-36.0); Mean Corpuscular Hemoglobin 30.4 pg (27.0-31.0); Mean Corpuscular Volume 94.1 fl (78.0-98.0); Mean Platelet Volume 12.9 fL (7.4-10.4); Platelet Count 198 10x3/uL (130-400); RBC Distribution Width 12.4 % (11.5-14.5)
[2025-01-21 19:04] LABS: ALT (SGPT) 35 U/L (Less than 45); AST (SGOT) 21 U/L (11-34); Alkaline Phosphatase 109 U/L (40-110); Anion Gap 18 mmol/L (10-20); BUN (Urea Nitrogen) 14 mg/dL (8.4-25.7); Bilirubin, Total 0.3 mg/dL (0.3-1.2); Calc. Creatinine Clearance 0 mL/min (70-130); Carbon Dioxide 18 mmol/L (22-29); Chloride 102 mmol/L (98-107); Estimated GFR 73; Globulin 2.9 g/dL (2.4-3.5); Glucose 363 mg/dL (70-105); Potassium 4.4 mmol/L (3.5-5.1); Protein, Total 6.9 g/dL (6.0-8.3); Sodium 134 mmol/L (136-145)
[2025-01-21] MEDS ORDERED: Insulin Regular, Human 100 UNIT/ML 10 ML VIAL ONE (19:31)
== END 2025-01-21 19:50 | disposition home or self-care (01) ==
LOC: NAV ERS 18:21
DX: M25.511 Pain in right shoulder (principal); E11.65 Type 2 diabetes mellitus with hyperglycemia; I10 Essential (primary) hypertension; E11.9 Type 2 diabetes mellitus without complications; Z79.4 Long term (current) use of insulin; Z55.6 Problems related to health literacy
CPT/HCPCS: 80053; 85025; 99283; J1815

== ENCOUNTER 2025-07-15 19:26 | Emergency (ER) | payer SELFPAY ==
[2025-07-15] MEDS ORDERED: Ibuprofen 800 MG TAB ONE (19:42)
== END 2025-07-15 19:50 | disposition home or self-care (01) ==
LOC: NAV ERS 19:26
DX: M65.4 Radial styloid tenosynovitis [de Quervain] (principal); I10 Essential (primary) hypertension; E11.51 Type 2 diabetes mellitus with diabetic peripheral angiopathy without gangrene; Z79.4 Long term (current) use of insulin; Z79.82 Long term (current) use of aspirin; Z79.899 Other long term (current) drug therapy
CPT/HCPCS: 99283

== ENCOUNTER 2025-09-14 13:07 | Emergency (ER) | payer BC ==
[2025-09-14 13:37] LABS: #Basophils 0.1 thou/uL (0.0-0.2); #Eosinophils 0.1 thou/uL (0.0-0.7); #Lymphocytes 1.5 thou/uL (1.20-3.40); #Monocytes 0.7 thou/uL (0.11-0.59); #Neutrophils 5.2 thou/uL (1.40-6.50); %Basophils 1.1 % (0.0-1.0); %Eosinophils 1.4 % (0.0-10.0); %Lymphocytes 20.2 % (21.0-51.0); %Monocytes 8.5 % (0.0-10.0); %Neutrophils 68.8 % (42.0-75.0); Hematocrit 44.6 % (42.0-52.0); Hemoglobin 15.6 g/dL (14.0-18.0); Mean Corpuscular Hemoglobin 31.9 pg (27.0-31.0); Mean Corpuscular Volume 91.2 fl (78.0-98.0); Platelet Count 213 10x3/uL (130-400); Red Blood Cell (RBC) Count 4.89 mill/uL (4.70-6.10); White Blood Cell (WBC) Count 7.6 10x3/uL (4.8-10.8)
[2025-09-14 13:49] LABS: Bicarbonate (HCO3v) 24.9 mmol/L (22.0-28.0); CO2 Tension (PvCO2) 41.6 mmHg (42.0-51.0); Calcium, Ionized 1.24 mmol/L (1.15-1.33); Chloride 104 mmol/L (98-107); Hemoglobin - Calc 15.5 g/dL (14.0-18.0); Potassium 3.6 mmol/L (3.5-5.1); Sodium 139 mmol/L (138-145); T. Carbon Dioxide 26.2 mmol/L (22.0-28.0); vO2 Saturation-calc 82.4 % (60.0-85.0)
[2025-09-14 13:53] LABS: ALT (SGPT) 33 U/L (Less than 45); AST (SGOT) 22 U/L (11-34); Albumin 3.6 g/dL (3.1-4.5); Alkaline Phosphatase 80 U/L (40-110); Anion Gap 16 mmol/L (10-20); BUN (Urea Nitrogen) 15 mg/dL (8.4-25.7); Bilirubin, Total 0.3 mg/dL (0.3-1.2); Calc. Creatinine Clearance 0 mL/min (70-130); Calcium 9.1 mg/dL (7.8-10.44); Carbon Dioxide 22 mmol/L (23-31); Chloride 103 mmol/L (98-107); Globulin 2.8 g/dL (2.4-3.5); Glucose 215 mg/dL (80-115); Potassium 3.6 mmol/L (3.5-5.1); Sodium 137 mmol/L (136-145)
[2025-09-14 14:19] LABS: CAUTI Indications for Culture Alt mental st,lethar; Glucose, Urine (Dipstick) >=1000 mg/dL (Negative); Leukocyte Negative (Negative); Protein, Urine (Dipstick) Negative (Neg-Trace); RBC/HPF 0-3 HPF (0-3); Specific Gravity, Urine 1.020 (1.005-1.030); WBC/HPF 0-3 HPF (0-3)
[2025-09-14 14:20] LABS: Urine Culture Reflex No No
== END 2025-09-14 14:56 | disposition home or self-care (01) ==
LOC: NAV ERS 13:07
DX: E11.65 Type 2 diabetes mellitus with hyperglycemia (principal); I10 Essential (primary) hypertension; Z79.4 Long term (current) use of insulin; Z79.84 Long term (current) use of oral hypoglycemic drugs; Z79.899 Other long term (current) drug therapy; Z79.82 Long term (current) use of aspirin
CPT/HCPCS: 36416; 80053; 81001; 82010; 82330; 82435; 82803; 83605; 84132; 84295; 85014; 85025; 99285

== ENCOUNTER 2025-09-25 16:21 | Emergency (ER) | payer BC | END 2025-09-25 17:15 | disposition home or self-care (01) | LOC: NAV ERS 16:21 | DX: S80.12XA Contusion of left lower leg, initial encounter (principal); Z89.512 Acquired absence of left leg below knee; I10 Essential (primary) hypertension; E11.9 Type 2 diabetes mellitus without complications; W22.8XXA Striking against or struck by other objects, initial encounter; Z79.4 Long term (current) use of insulin | CPT/HCPCS: 99283 ==

== ENCOUNTER 2025-10-10 17:51 | Emergency (ER) | payer BC ==
[2025-10-10] MEDS ORDERED: Cyclobenzaprine 10 MG TAB ONE (18:20)
[2025-10-10] MEDS ORDERED: Ibuprofen 200 MG TAB ONE (18:20)
== END 2025-10-10 18:47 | disposition home or self-care (01) ==
LOC: NAV ERS 17:51
DX: S29.012A Strain of muscle and tendon of back wall of thorax, initial encounter (principal); I10 Essential (primary) hypertension; E78.5 Hyperlipidemia, unspecified; E11.40 Type 2 diabetes mellitus with diabetic neuropathy, unspecified; Z79.4 Long term (current) use of insulin; Z79.899 Other long term (current) drug therapy; Z79.82 Long term (current) use of aspirin; Z79.84 Long term (current) use of oral hypoglycemic drugs; X50.0XXA Overexertion from strenuous movement or load, initial encounter

== ENCOUNTER 2025-10-22 12:54 | Emergency (ER) | payer BC | END 2025-10-22 13:35 | disposition home or self-care (01) | LOC: NAV ERS 12:54 | DX: B34.9 Viral infection, unspecified (principal); J06.9 Acute upper respiratory infection, unspecified; F32.A Depression, unspecified; I10 Essential (primary) hypertension; E11.40 Type 2 diabetes mellitus with diabetic neuropathy, unspecified; Z79.4 Long term (current) use of insulin; Z79.84 Long term (current) use of oral hypoglycemic drugs; Z79.899 Other long term (current) drug therapy; Z79.82 Long term (current) use of aspirin | CPT/HCPCS: 99283 ==